=== PATIENT | male | born 1990 | race Caucasian/White ===

== ENCOUNTER 2019-05-20 07:25 | Inpatient (IN) | payer OTHER ==
[~2019-05-20] VITALS: Ht 172.7 cm; Wt 57.7 kg
[2019-05-20 08:28] LABS: U Amphetamine Screen Not Detected; U Barbituate Screen Not Detected; U Benzodiazapine Screen DETECTED; U Buprenorphine Screen Not Detected; U Cannabinoids Screen Not Detected; U Cocaine Screen Not Detected; U Methadone Screen Not Detected; U Methamphetamine Screen Not Detected; U Opiates Screen Not Detected; U Oxycodone Screen Not Detected; U Phencyclidine Screen Not Detected; U Propoxyphene Screen Not Detected
[2019-05-20 11:51] LABS: BASOPHILS ABSOLUTE AUTO 0.03 K/mm3 (0.00-0.23); BASOPHILS PERCENT AUTO 0 % (0-2); EOSINOPHILS ABSOLUTE AUTO 0.06 K/mm3 (0.00-0.68); EOSINOPHILS PERCENT AUTO 1 % (0-6); Hematocrit 42.2 % (37.0-53.0); Hemoglobin 14.6 g/dL (13.5-17.5); IMMATURE GRAN ABSOLUTE AUTO 0.03 K/mm3 (0.00-0.10); IMMATURE GRAN PERCENT AUTO 0 % (0-1); LYMPHOCYTES ABSOLUTE AUTO 1.24 K/mm3 (0.84-5.20); LYMPHOCYTES PERCENT AUTO 15 % (21-46); MONOCYTES ABSOLUTE AUTO 0.89 K/mm3 (0.16-1.47); MONOCYTES PERCENT AUTO 11 % (4-13); Mean Corpuscular HGB 34.5 pg (26.0-34.0); Mean Corpuscular HGB Conc 34.6 g/dL (31.5-36.5); Mean Corpuscular Volume 100 fL (80-100); Mean Platelet Volume 9.9 fL (9.1-12.4); NEUTROPHILS ABSOLUTE AUTO 6.22 K/mm3 (1.96-9.15); NEUTROPHILS PERCENT AUTO 73 % (41-73); Platelet Count 149 K/mm3 (150-400); RDW Coefficient Variation 11.9 % (11.7-14.2); RDW Standard Deviation 43.5 fL (35.1-46.3); Red Blood Cell Count 4.23 M/mm3 (4.30-5.90); White Blood Cell Count 8.47 K/mm3 (4.00-11.30)
[2019-05-20 12:13] LABS: Alanine Aminotransfer (ALT/SGP 101 U/L (12-78); Albumin, Blood 4.8 g/dL (3.4-5.0); Albumin/Globulin Ratio 1.3 (0.8-1.8); Alk Phos 68 U/L (50-136); Anion Gap 10 mmol/L (6-16); Aspartate Aminotrans (AST/SGOT 126 U/L (12-37); Bilirubin, Total 1.1 mg/dL (0.1-1.0); Blood Urea Nitrogen 9 mg/dL (8-24); Bun/Creatinine Ratio 10.8 (12.0-20.0); CO2, Blood 23 mmol/L (21-32); Calcium, Blood 9.7 mg/dL (8.5-10.1); Chloride, Blood 105 mmol/L (98-108); Creatinine, Blood 0.84 mg/dL (0.60-1.20); Ethanol (Alcohol), Blood, Med <3 mg/dL; Globulin, Blood 3.6 g/dL (2.2-4.0); Glomerular Filtration Rate >60 (60-); Glucose, Blood 117 mg/dL (70-99); Potassium, Blood 3.6 mmol/L (3.5-5.5); Salicylate <1.7 mg/dL (2.8-20.0); Sodium, Blood 138 mmol/L (136-145); Total Protein, Blood 8.4 g/dL (6.4-8.2)
[2019-05-20 12:25] LABS: Acetaminophen, Random <2.0 ug/mL (10.0-30.0)
[2019-05-20 14:37] LABS: Source, Urine Clean Catch
[2019-05-20 14:43] LABS: Bilirubin, Urine Neg (Neg); Blood, Urine Neg (Neg); Glucose Qualitative, Urine Neg (Neg); Ketones, Urine Neg (Neg); Leukocyte Esterase, Urine Neg (Neg); Nitrite, Urine Neg (Neg); Protein, Urine Neg (Neg); Urobilinogen, Urine NORM (Normal)
[2019-05-20 14:46] LABS: Appearance, Urine Clear (Clear); Color, Urine Pale Yellow (P-Yellow)
[2019-05-21 05:54] LABS: Hematocrit 38.2 % (37.0-53.0); Hemoglobin 13.2 g/dL (13.5-17.5); Mean Corpuscular HGB 35.7 pg (26.0-34.0); Mean Corpuscular HGB Conc 34.6 g/dL (31.5-36.5); Mean Platelet Volume 10.1 fL (9.1-12.4); Platelet Count 130 K/mm3 (150-400); RDW Coefficient Variation 12.1 % (11.7-14.2); RDW Standard Deviation 45.5 fL (35.1-46.3); White Blood Cell Count 8.95 K/mm3 (4.00-11.30)
[2019-05-21 05:56] LABS: Mean Corpuscular Volume 103 fL (80-100)
[2019-05-21 06:07] LABS: Alanine Aminotransfer (ALT/SGP 92 U/L (12-78); Albumin, Blood 4.2 g/dL (3.4-5.0); Albumin/Globulin Ratio 1.2 (0.8-1.8); Alk Phos 56 U/L (50-136); Anion Gap 12 mmol/L (6-16); Aspartate Aminotrans (AST/SGOT 144 U/L (12-37); Bilirubin, Total 1.5 mg/dL (0.1-1.0); Blood Urea Nitrogen 17 mg/dL (8-24); CO2, Blood 22 mmol/L (21-32); Calcium, Blood 9.5 mg/dL (8.5-10.1); Chloride, Blood 106 mmol/L (98-108); Creatinine, Blood 1.06 mg/dL (0.60-1.20); Globulin, Blood 3.4 g/dL (2.2-4.0); Glomerular Filtration Rate >60 (60-); Glucose, Blood 94 mg/dL (70-99); Potassium, Blood 3.5 mmol/L (3.5-5.5); Sodium, Blood 140 mmol/L (136-145); Total Protein, Blood 7.6 g/dL (6.4-8.2)
--- NOTE | 2019-05-21 07:45 | NUR ---
ASSUMED CARE PT. ARRIVES FROM ER ACCOMPANIED BY SECURITY. PT. MUMBLING INCOHERENTLY UPON ARRIVAL. NEEDING ASSISTANCE TO SLIDE TO ICU BED. PT. PULLING AT LINES AND CORDS AND ATTEMPTING TO PUSH STAFF AWAY TO GET OOB. PT. VERY TREMOROUS. CALL TO UPON PT ARRIVAL FOR RESTRAINT ORDER AND PRECEDEX GTT. PT. PLACED IN POSY WITH ASSISTANCE FROM SECURITY AND BILAT WRIST RESTRAINTS. PT. VSS UPON ARRIVAL HR 90S, BP WNL, SPO2 96% ON RA. PT. LS CLEAR T/O. PT HAS MULTIPLE BRUISES TO KNUCKLES, ARMS, AND KNEES. PER REPORT FROM ER BHU PT WAS THROWING SELF ON THE FLOOR, HITTING VENEGAS, AND BEING DESTRUCTIVE TO ROOM AND OTHERS. PT. UNABLE TO RESPOND TO QUESTIONS APPROPRIATELY AT THIS TIME. HAVING AUDITORY AND VISUAL HALLUCINATIONS.
--- NOTE | 2019-05-21 13:50 | NUR ---
PT SLEEPING; OCCASIONAL RESTLESSNESS AND MUMBLING IN BED. ABLE TO REPOSITION SELF FOR COMFORT. VSS.
--- NOTE | 2019-05-21 17:28 | NUR ---
SHIFT SUMMARY PT. VERY DROWSY ALL DAY, PT REPOSITIONS SELF NEEDED T/O DAY. REMAINS IN AV AND BILAT WRIST RESTRAINTS FOR SAFETY. PT. VSS T/O SHIFT. REMAINS ON PRECEDEX GTT. PT REMAINS DISORIENTED T/O DAY. REPORT TO ONCOMING RN.
--- NOTE | 2019-05-21 18:00 | NUR ---
DR. LEDEZMA IN TO SEE PT. PT TOO DROWSY, WILL REEVAL TOMORROW.
--- NOTE | 2019-05-21 20:40 | NUR ---
ASSUMED CARE: PT SLEEPING SOUNDLY, BUT EASILY AROUSES TO VERBAL STIMULI. CAN'T TELL ME WHERE HS IS, OR THE DATE, BUT KNOW THAT IT'S APRIL. WHENI TELL HIM WHAT DATE IT IS, HE TELLS ME THAT HE WAS SUPPOSED TO BE GOING HOME TODAY FROM REHAB. DOESN'T REMEMBER HOW HE GOT HERE. C/O SORE L SHOULDER. LS CLEAR T/O WITH BIOX 100% ON RA. HEART SOUNDS S1 AND S2 AUSCULTATED WITH MONITOR SHOWING SB WITH HR 60. HR SLOWS AND SPEEDS UP PERIODICALLY.20G IV R HAND WITH NS@ 100/HR. 20G IV LFA WITH PRECEDEX AT 10.2CC/HR= 0.7MCG/KG/HR. ABD R/S WITH BT X4. VOIDS PER ATTENDS. AV AND BILAT WRIST RESTAINTS ON. PT IS 2 MD HOLD.
[2019-05-22 04:06] LABS: Anion Gap 8 mmol/L (6-16); Blood Urea Nitrogen 10 mg/dL (8-24); Bun/Creatinine Ratio 12.4 (12.0-20.0); CO2, Blood 23 mmol/L (21-32); Calcium, Blood 8.3 mg/dL (8.5-10.1); Chloride, Blood 109 mmol/L (98-108); Glomerular Filtration Rate >60 (60-); Glucose, Blood 79 mg/dL (70-99); Potassium, Blood 3.8 mmol/L (3.5-5.5); Sodium, Blood 140 mmol/L (136-145)
--- NOTE | 2019-05-22 05:53 | NUR ---
SHIFT SUMMARY: PT CALM WHEN AROUSED THIS AM. ASKS WHERE HIS BELONGINGS ARE; I CALLED [facility] AND THEY TOLD ME HIS BELONGINGS ARE THERE AND LOCKED UP. PT IS NOW ABLE TO TELL ME WHERE HE IS AND WHAT MONTH; STILL A BIT UNSURE OF THE DATE. PT HAS NOT URINATED ALL NOC; WILL CONTINUE IVF FOR NOW. PRECEDEX AT 0.5MCG/KG/HR. PT CONTINUES OT BE IN BILAT WRIST AND VEST RESTRAINTS.
--- NOTE | 2019-05-22 07:26 | NUR ---
ASSUMED CARE OF PT THIS AM PT. ALERT AND ORIENTED TO LOCATION AND EVENT. STATES "SO APPARENTLY I WAS HALLUCINATING?". PT UPDATED ON MEDICATIONS AND PLAN OF CARE. PT. CALM AND COOPERATIVE THIS AM. AV AND BILAT WRIST RESTRAINTS REMOVED. PT. PROVIDED WITH WATER AND BREAKFAST TRAY ORDERED. PT. VSS THIS AM. REMAINS ON PRECEDEX GTT AT 0.5 MCG/KG/HR. SITTING UP IN BED WATCHING TV AT THIS TIME. CALL LIGHT IN REACH, REMAINS ON REMOTE MONITORING.
--- NOTE | 2019-05-22 11:11 | NUR ---
[facility] IN TO TALK WITH PT. WILL ASSIST WITH BUS TICKET IF NECESSARY TO GET PT TO OUTPAIENT TX IN [place] WHEN READY FOR DISCHARGE.
--- NOTE | 2019-05-22 11:45 | NUR ---
PRECEDEX GTT TITRATED OFF AT THIS TIME PT ASSISTED TO SERVICE LINE COORDINATOR ROOM AND AMBULATE TO TOILET. PT CONTINUES TO BE COOPERATIVE WITH CARE. PT VOIDED IN BEDSIDE TOILET AND WAS ASSISTED TO SHOWER BY ELECTROCARDIOGRAPHIC TECHNICIAN. LINENS CHANGED.
--- NOTE | 2019-05-22 12:24 | NUR ---
dr. blunt in to see pt. per dr. blunt hold can be dropped, no new meds to be started
--- NOTE | 2019-05-22 15:29 | NUR ---
PT UP IN ROOM AD BETTY. NADN.
--- NOTE | 2019-05-22 16:04 | NUR ---
CALL FROM [facility] STAFF THEY WILL BE BRINGING PT BELONGINGS TO HOSPITAL PT HAS BEEN DISCHARGED FROM THEIR "[facility]". THEY WILL BE CONTACTING HIM WITH AN APPOINTMENT WITH [facility] [place]. PT SISTER REPORTS IF UPON DISCHARGE NO RIDE IS AVAILABLE THEY CAN GIVE HIM A RIDE
--- NOTE | 2019-05-22 17:01 | NUR ---
REPORT CALLED TO SURGICAL FLOOR RN PT. AND ALL BELONGINGS TAKEN TO ROOM 232. VSS UPON TRANSFER.
--- NOTE | 2019-05-22 23:34 | NUR ---
2334: PT STATES HE DOES NOT WISH TO RETURN TO [facility] AND THAT HE LIVES IN [place]. PT STATES THAT HE CALLED HIS SISTER AND SHE WILL BE AVAILABLE TO TRANSPORT HIM HOME UPON DISCHARGE. CIWA SCORE OF 2 AT THIS TIME AND PT IS AGREEABLE TO TAKEIN 1MG RISPERDAL THIS NOC.
--- NOTE | 2019-05-23 04:36 | NUR ---
SUMMARY: ADMIT DAY 3 ETOH WITHDRAWL AND DELIRIUM ON HOSPITALIST SERVICE. PT A&O X4 COOPERATIVE WITH CARE AND INTERACTS WITH STAFF APPROPRIATELY. DENIES SI/SH, RACING THOUGHTS, OR URGE TO DRINK ETOH. CIWA THIS SHIFT LESS THAN 3. VSS, AFEBRILE, TOLERATING REG DIET, VOIDING DARK YELLOW URINE. ANTICIPATE DC HOME TODAY. PT STATES HE LIVES IN [place] AND THAT HIS SISTER CAN COME GET HIM FOR TRANSPORTATION HOME.
--- NOTE | 2019-05-23 09:36 | NUR ---
CARE MANAGEMENT IN TO SEE PATIENT AND GIVE INFO ON [facility] [employer] [facility] MEETINGS. PT STATES IT IS HIS PLAN TO RETURN HOME TO [place] WITH SISTER UPON DISCHARGE AND CONTINUE TREATMENT THERE.
--- NOTE | 2019-05-23 10:39 | NUR ---
DR ZHENG CALLED TO CHECK ON PATIENT. STATES OK TO DISCHARGE FROM HIS STANDPOINT. PLAN FOR PATIENT TO FOLLOW UP WITH TREATMENT WHEN RETURNS HOME TO [place]. AWAITING HOSPITALIST ROUNDING FOR DC.
--- NOTE | 2019-05-23 11:39 | NUR ---
DISCHARGE: PT DC TO HOME AT THIS TIME WITH SISTER. PLAN TO FOLLOW UP WITH OUTPATIENT ADAPT WHEN RETURNS HOME TO [place]. IV DC'D WNL. NO NEW MEDS. PT VERBALIZED UNDERSTANDING OF INSTRUCTIONS. LEFT AMBULATORY TO CAR WITH BELONGINGS.
== END 2019-05-23 11:37 | disposition home or self-care (01) | DRG 897 ==
LOC: ER 07:25 → EOR 07:26 → ICUW 07:26 → SURS 05-21 03:55 → ICUW 05-21 07:15 → SURS 05-22 17:00
PROVIDERS: Emergency Medicine; Internal Medicine; ADMIT Internal Medicine
DX: F10.231 Alcohol dependence with withdrawal delirium (principal); R44.3 Hallucinations, unspecified; F17.210 Nicotine dependence, cigarettes, uncomplicated; F12.10 Cannabis abuse, uncomplicated
CPT/HCPCS: 36415; 80048; 80053; 81003; 82607; 82746; 83735; 84443; 85025; 85027; 93005; 93010; 96361; 96365; 96366; 96372-59; 96375; 96376; 99285-25; G0378; G0480; J1200; J1630; J1650; J2060; J3411; J3475; J7030; J7042; Q0163; Q3014